=== PATIENT | female | born 1945 | race Caucasian/White ===

== ENCOUNTER 2023-10-11 08:02 | Day surgery (SDC) | payer MEDICARE, OTHER ==
[2023-10-11 08:45] LABS: BASOPHILS % (AUTO) 0.4 % (0.0-2.0); EOSINOPHILS % (AUTO) 0.5 % (0.0-7.0); HEMATOCRIT 35.3 % (31.2-41.9); HEMOGLOBIN 12.1 g/dL (10.9-14.3); LYMPHOCYTES # (AUTO) 1.2 K/uL (0.8-4.8); LYMPHOCYTES % (AUTO) 15.6 % (20.5-51.5); MEAN CORPUSCULAR HEMOGLOBIN 29.1 uug (24.7-32.8); MEAN CORPUSCULAR HGB CONC 34 g/dL (32.3-35.6); MEAN CORPUSCULAR VOLUME 84.6 fL (75.5-95.3); MONOCYTES # (AUTO) 0.6 K/uL (0.1-1.30); MONOCYTES % (AUTO) 7.3 % (0.0-11.0); NEUTROPHILS # (AUTO) 5.8 K/uL (1.8-8.9); NEUTROPHILS % (AUTO) 76.2 % (38.5-71.5); PLATELET COUNT (AUTO) 166 K/uL (179-408); RED BLOOD CELL COUNT(AUTO) 4.17 MIL/uL (3.63-4.92); RED CELL DISTRIBUTION WIDTH 15.3 % (12.3-17.7); WHITE BLOOD COUNT (AUTO) 7.7 K/uL (3.8-11.8)
[2023-10-11] MEDS ORDERED: PROPOFOL 200 MG/20 ML BOTTLE ONE (09:16)
[2023-10-11 09:18] LABS: DIFFERENTIAL COMMENT 1
[2023-10-11 09:54] LABS: *BILIRUBIN,URIN NEGATIVE (NEGATIVE); *BLOOD, URINE NEGATIVE (NEGATIVE); *CLARITY,URINE CLEAR (CLEAR); *COLOR,URINE YELLOW (YELLOW); *KETONES,URINE TRACE (NEGATIVE); *PROTEIN,URINE NEGATIVE (NEGATIVE); *UROBILINOGEN,URINE 0.2 E.U./dl (NORMAL); LEUKOCYTE ESTERASE ,URINE NEGATIVE (NEGATIVE); NITRITE, URINE NEGATIVE (NEGATIVE); PH,URINE 6.5 (5.0-8.0); UGLUCOSE NEGATIVE (NEGATIVE)
[2023-10-11 09:58] LABS: CALCIUM 8.8 mg/dL (8.5-10.1); CREATININE 0.7 mg/dL (0.6-1.3); POTASSIUM 3.3 mmol/L (3.5-5.1)
[2023-10-11 12:00] VITALS: TEMP 98
[2023-10-11 15:23] LABS: BACTERIA,URINE NONE SEEN /HPF (NONE SEEN); RBC,URINE NONE SEEN /HPF (0-3); SQUAMOUS EPITHELIAL CELL,UR FEW /HPF (NONE SEEN); WBC,URINE 0-3 /HPF (0-3)
== END 2023-10-11 12:00 | disposition home or self-care (01) ==
LOC: DS 08:02
PROVIDERS: ATTEND Surgery
DX: D50.9 Iron deficiency anemia, unspecified (principal); R10.11 Right upper quadrant pain; K31.7 Polyp of stomach and duodenum; K64.8 Other hemorrhoids; J33.8 Other polyp of sinus; K29.70 Gastritis, unspecified, without bleeding; I10 Essential (primary) hypertension; E03.9 Hypothyroidism, unspecified; E66.9 Obesity, unspecified; I25.10 Atherosclerotic heart disease of native coronary artery without angina pectoris; M19.90 Unspecified osteoarthritis, unspecified site; E11.9 Type 2 diabetes mellitus without complications; E78.5 Hyperlipidemia, unspecified; F41.9 Anxiety disorder, unspecified; Z86.010 Personal history of colon polyps; Z88.8 Allergy status to other drugs, medicaments and biological substances; Z79.899 Other long term (current) drug therapy; Z98.890 Other specified postprocedural states; Z85.3 Personal history of malignant neoplasm of breast
CPT/HCPCS: 36415; 43239; 45378; 71045; 80048; 81001; 82962; 85025; 85730; J3490; J7040; A4663

== ENCOUNTER 2024-02-15 07:51 | Inpatient (IN) | payer MEDICARE, OTHER ==
[~2024-02-15] VITALS: Ht 165.1 cm; Wt 83.9 kg
[2024-02-15] MEDS: ACETAMINOPHEN 325 MG TABLET PO ONE (07:30)
[2024-02-15] MEDS: GABAPENTIN 100 MG CAPSULE PO ONE (07:30)
[2024-02-15] MEDS ORDERED: GABAPENTIN 100 MG CAPSULE ONE (08:52)
[2024-02-15] MEDS ORDERED: ACETAMINOPHEN 500 MG TABLET ONE (08:52)
[2024-02-15] MEDS ORDERED: FENTANYL CITRATE 100 MCG/2 ML AMPUL ONE ×2 (10:09→11:54)
[2024-02-15] MEDS ORDERED: ROCURONIUM BROMIDE 50 MG/5 ML VIAL ONE (10:10)
[2024-02-15] MEDS ORDERED: MIDAZOLAM HCL 2 MG/2 ML VIAL ONE (10:10)
[2024-02-15] MEDS ORDERED: FAMOTIDINE. 20 MG/2 ML VIAL IV ONE (10:10)
[2024-02-15] MEDS ORDERED: BUPIVACAINE/EPI PF 0.25% 10 ML VIAL IJ ONE (10:48)
[2024-02-15] MEDS ORDERED: LIDOCAINE HCL 1% 20 ML VIAL ONE (10:48)
[2024-02-15] MEDS ORDERED: NEOMY/BACITRAC/POLYMI OINT 28.35 GM TUBE ONE (10:49)
[2024-02-15] MEDS ORDERED: ALPRAZOLAM 0.5 MG TABLET PO PRN (14:30)
[2024-02-15] MEDS: MORPHINE SULFATE 2 MG/1 ML DISP.SYRIN IV PRN (15:09)
[2024-02-15 16:02] VITALS: BP 159/50; TEMP 98; O2SAT 94
[2024-02-15] MEDS ORDERED: CLON1PAT2 TD (16:40)
[2024-02-15] MEDS ORDERED: EVOL140P3 SQ (16:40)
[2024-02-15] MEDS ORDERED: DOXA4TAB3 PO (16:40)
[2024-02-15] MEDS ORDERED: INSU100V37 SQ (16:40)
[2024-02-15] MEDS ORDERED: QUET50TA PO (16:40)
[2024-02-15] MEDS ORDERED: ESCI10TA PO (16:40)
[2024-02-15] MEDS ORDERED: ALPR1TAB7 PO (16:40)
[2024-02-15] MEDS ORDERED: CLOP75TA15 PO (16:40)
[2024-02-15] MEDS ORDERED: ZOLP10TA2 PO (16:40)
[2024-02-15] MEDS ORDERED: LABE200T5 PO (16:40)
[2024-02-15] MEDS ORDERED: ATOR10TA PO (16:40)
[2024-02-15] MEDS ORDERED: ISOS30TA86 PO (16:40)
[2024-02-15] MEDS ORDERED: CHOL500050 PO (16:40)
[2024-02-15] MEDS ORDERED: PANT40TA49 PO (16:40)
[2024-02-15] MEDS ORDERED: AMLO10TA59 PO (16:40)
[2024-02-15] MEDS ORDERED: LOSA100T31 PO (16:40)
[2024-02-15] MEDS ORDERED: INSU100V11 PO (16:44)
[2024-02-15] MEDS ORDERED: Medication Not On Formulary EA (Cholecalciferol (Vitamin D3) (Vitamin D3) 50,000 UNIT) PO SCH (18:30)
[2024-02-15] MEDS ORDERED: Medication Not On Formulary EA (Alprazolam (Xanax) 1 MG) PO PRN (18:30)
[2024-02-15] MEDS: ESCITALOPRAM OXALATE 10 MG TABLET PO SCH (18:32)
[2024-02-15] MEDS ORDERED: DEXTROSE 50% 50 ML DISP.SYRIN IV PRN (18:45)
[2024-02-15] MEDS: CLONIDINE TTS 2 PATCH TD SCH (19:02)
[2024-02-15] MEDS: INSULIN REGULAR, HUMAN 1000 UNIT/10 ML VIAL SQ PRN (20:26)
[2024-02-15] MEDS: ATORVASTATIN 10 MG TABLET PO SCH (20:27)
[2024-02-15] MEDS: ONDANSETRON 4 MG/2 ML VIAL IV PRN (20:27)
[2024-02-15] MEDS: QUETIAPINE FUMARATE 25 MG TABLET PO SCH (20:27)
[2024-02-15] MEDS: ZOLPIDEM 5 MG TABLET PO SCH (20:28)
[2024-02-15] MEDS: BLOOD SUGAR DIAGNOSTIC 1 EACH STRIP VI SCH (20:43)
[2024-02-15] MEDS ORDERED: ATORVASTATIN 20 MG TABLET PO SCH (21:00)
[2024-02-15] MEDS ORDERED: LABETALOL HCL 200 MG TABLET PO SCH (21:00)
[2024-02-15] MEDS ORDERED: Medication Not On Formulary EA (Zolpidem Tartrate (Ambien) 10 MG) PO SCH (21:00)
[2024-02-15] MEDS: INSULIN REGULAR, HUMAN 300 UNITS/3 ML VIAL SQ PRN (21:24)
[2024-02-15 21:44] VITALS: BP 142/46; TEMP 98.3; O2SAT 97
[2024-02-16] VITALS (7 sets, daily range): BP systolic 118–178; BP diastolic 49–77; TEMP 98.1–99.1; O2SAT 94–100
[2024-02-16] MEDS: CLONIDINE HCL 0.1 MG TABLET PO PRN (05:26)
[2024-02-16] MEDS: PANTOPRAZOLE SODIUM 40 MG TABLET.DR PO SCH (06:19)
[2024-02-16 07:00] LABS: BASOPHILS % (AUTO) 0.4 % (0.0-2.0); EOSINOPHILS % (AUTO) 0.4 % (0.0-7.0); HEMATOCRIT 33.6 % (31.2-41.9); HEMOGLOBIN 11.7 g/dL (10.9-14.3); LYMPHOCYTES # (AUTO) 1.9 K/uL (0.8-4.8); LYMPHOCYTES % (AUTO) 26.4 % (20.5-51.5); MEAN CORPUSCULAR HEMOGLOBIN 29.6 uug (24.7-32.8); MEAN CORPUSCULAR HGB CONC 35 g/dL (32.3-35.6); MEAN CORPUSCULAR VOLUME 85.1 fL (75.5-95.3); MONOCYTES # (AUTO) 0.5 K/uL (0.1-1.30); MONOCYTES % (AUTO) 7.2 % (0.0-11.0); NEUTROPHILS # (AUTO) 4.6 K/uL (1.8-8.9); NEUTROPHILS % (AUTO) 65.6 % (38.5-71.5); PLATELET COUNT (AUTO) 138 K/uL (179-408); RED BLOOD CELL COUNT(AUTO) 3.95 MIL/uL (3.63-4.92); RED CELL DISTRIBUTION WIDTH 13.8 % (12.3-17.7); WHITE BLOOD COUNT (AUTO) 7.1 K/uL (3.8-11.8)
[2024-02-16] MEDS ORDERED: PANTOPRAZOLE SODIUM 40 MG TABLET.DR PO SCH (07:00)
[2024-02-16 07:30] LABS: ALANINE AMINOTRANSFERASE 19 U/L (14-59); ALBUMIN 3.2 g/dL (3.4-5.0); ALKALINE PHOSPHATASE 74 U/L (50-136); ASPARTATE AMINOTRANSFERASE 7 U/L (15-37); CARBON DIOXIDE 31 mmol/L (21-32); CHLORIDE 107 mmol/L (98-107); CHOLESTEROL 101 mg/dL (<200); CREATININE 0.7 mg/dL (0.6-1.3); GLUCOSE 177 mg/dL (74-106); HDL CHOLESTEROL 54 mg/dL (40-60); IRON, SERUM 102 ug/dL (50-175); MAGNESIUM 1.9 mg/dL (1.8-2.4); PHOSPHOROUS 3.9 mg/dL (2.5-4.9); POTASSIUM 4.1 mmol/L (3.5-5.1); SODIUM SERUM 142 mmol/L (136-145); TOTAL PROTEIN, SERUM 6.9 g/dL (6.4-8.2); TRIGLYCERIDES 162 MG/DL (30-150); UREA NITROGEN, BLOOD 11 mg/dL (7-18)
[2024-02-16] MEDS ORDERED: INSULIN ASPART 1000 UNITS/10 ML VIAL(NOVOLOG) SQ SCH (08:00)
[2024-02-16 08:15] LABS: THYROID STIMULATING HORMONE 0.666 mIU/mL (0.358-3.740)
[2024-02-16] MEDS: LOSARTAN POTASSIUM 50 MG TABLET PO SCH (08:25)
[2024-02-16] MEDS: ISOSORBIDE MONONITRATE 30 MG TAB.SR.24H PO SCH (08:25)
[2024-02-16] MEDS: DOXAZOSIN 2 MG TABLET PO SCH (08:25)
[2024-02-16] MEDS: CLOPIDOGREL 75 MG TABLET PO SCH (08:26)
[2024-02-16] MEDS: AMLODIPINE 10 MG TABLET PO SCH (08:26)
[2024-02-16] MEDS: LABETALOL HCL 200 MG TABLET PO SCH (08:27)
[2024-02-16] MEDS ORDERED: DULOXETINE 60 MG CAPSULE.DR PO SCH (09:00)
[2024-02-16] MEDS ORDERED: AMLODIPINE 10 MG TABLET PO SCH (09:00)
[2024-02-16] MEDS ORDERED: Medication Not On Formulary EA (Losartan Potassium 100 MG) PO SCH (09:00)
[2024-02-16] MEDS ORDERED: ASPIRIN 81 MG TAB.CHEW PO SCH (09:00)
[2024-02-16] MEDS ORDERED: CLONIDINE HCL 0.2 MG TABLET PO SCH (09:00)
[2024-02-16] MEDS ORDERED: LOSARTAN POTASSIUM 50 MG TABLET PO SCH (09:00)
[2024-02-16] MEDS ORDERED: CLOPIDOGREL 75 MG TABLET PO SCH (09:00)
[2024-02-16] MEDS ORDERED: ISOSORBIDE MONONITRATE 30 MG TAB.SR.24H PO SCH (09:00)
[2024-02-16] MEDS ORDERED: MIRTAZAPINE 15 MG TABLET PO SCH (09:00)
[2024-02-16] MEDS: ACETAMINOPHEN 325 MG TABLET PO PRN (11:00)
[2024-02-16] MEDS: ALPRAZOLAM 0.5 MG TABLET PO PRN (13:39)
[2024-02-17 08:00] VITALS: BP 171/65; TEMP 98.5; O2SAT 95
[2024-02-17 12:00] VITALS: BP 123/48; TEMP 98.4; O2SAT 95
[2024-02-17] MEDS ORDERED: ROSU10TA2 PO (13:00)
[2024-02-17 17:00] VITALS: BP 164/58; TEMP 98.6; O2SAT 95
[2024-02-17 17:10] VITALS: BP 164/58
[2024-02-17 19:54] VITALS: O2SAT 95
== END 2024-02-17 18:35 | disposition home health service (06) | DRG 399 ==
LOC: DS 07:51 → MEDSURG3 13:54
PROVIDERS: ADMIT Surgery; ATTEND Internal Medicine
PROC: 0DTJ4ZZ Resection of Appendix, Percutaneous Endoscopic Approach (ICD-10-PCS; principal; 2024-02-15)
DX: K35.80 Unspecified acute appendicitis (principal); I25.10 Atherosclerotic heart disease of native coronary artery without angina pectoris; E78.1 Pure hyperglyceridemia; Z95.5 Presence of coronary angioplasty implant and graft; I10 Essential (primary) hypertension; Z87.11 Personal history of peptic ulcer disease; F32.A Depression, unspecified; E11.9 Type 2 diabetes mellitus without complications; E66.9 Obesity, unspecified; Z68.30 Body mass index [BMI] 30.0-30.9, adult; G47.00 Insomnia, unspecified; M15.9 Polyosteoarthritis, unspecified; E07.9 Disorder of thyroid, unspecified; G89.29 Other chronic pain; Z79.4 Long term (current) use of insulin; Z79.899 Other long term (current) drug therapy; Z79.02 Long term (current) use of antithrombotics/antiplatelets; Z82.49 Family history of ischemic heart disease and other diseases of the circulatory system; Z90.49 Acquired absence of other specified parts of digestive tract; K64.9 Unspecified hemorrhoids; Z88.8 Allergy status to other drugs, medicaments and biological substances; K21.9 Gastro-esophageal reflux disease without esophagitis; R41.3 Other amnesia
CPT/HCPCS: 36415; 83550; 83735; 84100; 84443; 85025; A4649; A4663; A9150; G0378; J1815; J2250; J2270; J2405; J3010; J3490; J7040; L8699